=== PATIENT | female | born 1950 | race Caucasian/White ===

== ENCOUNTER 2019-10-21 10:51 | Outpatient (CLI) | payer OTHER, SELFPAY ==
--- NOTE | 2019-10-24 06:12 | SLEEP_ITS ---
Home sleep test. DATE OF STUDY: 10/21/2019 ORDERING PHYSICIAN: Dario Moon M.D. REASON FOR STUDY: Loud snoring. HISTORY: This patient is a 69-year-old woman, 5 feet 2 inches tall, weighing 175 pounds with a body mass index of 32 kg/m2. On a prior sleep test in 2005, her optimal pressure was 20 cm. She has been told by her family that she snores very loudly. This has been going on for several years. It is moderately severe. She has a family history with 2 brothers and 2 sisters having sleep apnea. She had a sleep study 10 years ago and had a CPAP machine, but difficulty using it. She constantly snores and it is constantly loud enough that others complain about it. She occasionally awakens at night with heartburn, belching, or cough. She does not awaken from sleep feeling short of breath. She occasionally has difficulty sleeping with cold. She rarely wakes up gasping for breath at night. She occasionally has breathing problems witnessed by others. She frequently sweats excessively at night and frequently notices her heart pounding or beating irregularly at night. She does not fall asleep during the day, does not fall asleep involuntarily or while driving, does not have loss of muscle tone with strong emotion. She does not feel paralyzed on waking or falling asleep, and she does not have vivid dreamlike scenes upon waking or falling asleep. She rarely is afraid to go to sleep. She does not have nightmares. She rarely remembers her dreams. She frequently has racing thoughts. She frequently has anxiety. She occasionally has muscular tension and notices parts of her body jerking. She does not kick at night. She constantly has crawly and aching feelings in her legs and frequently has leg pain during the night. She constantly grinds her teeth at night. She occasionally is bothered by pain during the day. She rarely is awakened with pain at night. She frequently wakes up feeling stiff in the morning. She occasionally wakes up with sore achy muscles and wakes with pain in the neck and spine. She has dizziness and fatigue. Normal bedtime is 11 p.m., falling asleep immediately, waking 3-4 times at night for 1 minute. She frequently will drink water when she wakes at night. She wakes in the morning at 5:15 a.m. Weekend schedule is the same. She does not take naps in the day. She is usually drowsy for 2 hours after waking up. MEDICAL COMORBIDITIES: Back pain, hyperlipidemia, obstructive sleep apnea syndrome which was severe about 10 years ago, hypertension. On her prior test on 10/01/2005, her optimal pressure was 20 cm. MEDICATIONS: Multivitamin. HABITS: Caffeine, 2 cups of [id number] coffee daily. No alcohol. No recreational drugs. No tobacco. DESCRIPTION OF THE STUDY: On the [place] Sleepiness Scale, the score was 8. This was conducted as an unattended type 3 portable home sleep test using 4-channel monitoring including respiratory effort channel, snoring channel, oxygen desaturation channel, and heart rate channel. This study was scored using [facility] guidelines. Duration was 5 hours 54 minutes. The apnea-hypopnea index was 68. Oxygen desaturation index was 63. Lowest desaturation 70%. Baseline saturation 94%. Average saturation 90%. The patient had 319 apneas. 208 apneas or 65% were obstructive, 5% or 15 apneas were central, and 30% of the apneas or 96 were mixed, and she had 81 hypopneas. The patient had a numerous snoring events 1146. She had 372 desaturations and spent 32% of the study or 115 minutes below 88% saturation. IMPRESSION: 1. This study provides evidence of extremely severe obstructive sleep apnea syndrome G47.33 with a modest component 35% of the events being central. We recommend an AutoPAP to see if this is t
== END 2019-10-21 10:52 | disposition home or self-care (01) ==
LOC: ANHCSM 10:52
PROVIDERS: PCP Family Medicine; Visit Provider Family Medicine
DX: G47.33 Obstructive sleep apnea (adult) (pediatric) (principal); Z68.32 Body mass index [BMI] 32.0-32.9, adult; I10 Essential (primary) hypertension; M19.90 Unspecified osteoarthritis, unspecified site; E78.5 Hyperlipidemia, unspecified
CPT/HCPCS: 95806

== ENCOUNTER 2020-02-16 14:55 | Outpatient (CLI) | payer OTHER, SELFPAY ==
--- NOTE | ~2020-02-16 | MM_ITS ---
EXAMINATION: MM screening [facility] BI w olu HISTORY: Screening TECHNIQUE: Craniocaudal and mediolateral oblique 3-D tomosynthesis images were obtained and synthetic 2-D images were generated. CAD analysis was submitted and interpreted. COMPARISON: Comparison to multiple prior studies sequentially, with oldest reviewed study dated 07/2010. BREAST PARENCHYMAL COMPOSITION: There are scattered areas of fibroglandular density. FINDINGS: There are benign breast calcifications. There is no evidence of suspicious mass, calcificat ion, or architectural distortion to suggest malignancy in either breast. There has been no suspicious interval change. IMPRESSION: 1. No mammographic evidence of malignancy. 2. Recommend routine screening mammography in one year. BI-RADS Category 2: Benign finding(s). Reviewed, dictated and finalized at location A. ORK ENGINEER ADMINISTRATOR
== END 2020-02-16 14:56 | disposition home or self-care (01) ==
LOC: ANHIMG 14:57
PROVIDERS: PCP Family Medicine; Visit Provider Family Medicine
DX: Z12.31 Encounter for screening mammogram for malignant neoplasm of breast (principal)
CPT/HCPCS: 77063; 77067

== ENCOUNTER 2021-07-31 14:57 | Outpatient (CLI) | payer OTHER, SELFPAY ==
--- NOTE | ~2021-07-31 | DEXA_ITS ---
Bone Density Report Name: IRA CASTILLO Age: 71 Sex: Female Ethnicity: White Date of : 1950 Indication: postmenopausal; screening for osteoporosis; prior fracture; Referring Provider: LUAN*MADALYN Field Study: Bone densitometry was performed. Exam Date: July 31, 2021 Accession number: [id number] Bone Density: Region BMD T-score Z-score Classification AP Spine(L1-L4) 0.982 -0.6 1.6 Normal Femoral Neck (Left) 0.719 -1.2 0.7 Osteopenia Total Hip (Left) 0.824 -1.0 0.6 Normal Femoral Neck (Right) 0.633 -1.9 -0.1 Osteopenia Total Hip (Right) 0.880 -0.5 1.1 Normal Total Hip Mean 0.852 -0.8 0.9 Normal World Health Organization criteria for BMD impression classify patients as: Normal (T-score at or above -1.0), Osteopenia (T-score between -1.0 and -2.5), or Osteoporosis (T-score at or below -2.5). 10-year Fracture Risk(1): Major Osteoporotic Fracture 17% Hip Fracture 3.2% Reported Risk Factors: [place] (), Neck BMD=0.633, BMI=32.9, previous fracture (1) FRAX(R) Version 3.08. Fracture probability calculated for an untreated patient. Fracture probability may be lower if the patient has received treatment. Clinical Information Provided by Patient: Has had a low trauma fracture Has used the following medications: Vitamin D Patient maximum height was 62 Menopause Age: 55 No regular weight bearing exercise Drinks caffeinated beverages Onset of menses at age 12 Number of children 3 Impression: The patient has low bone mass, based on the Right Femoral Neck T-score. The patient has an estimated ten-year risk of hip fracture of 3.2% and an estimated ten-year risk of major fracture of 17%, based on the WHO FRAX algorithm. The patient has risk factors, including: previous fracture. Discussion: BONE DENSITY IS LOW AT ONE OR MORE SKELETAL SITES. THE PATIENT'S BMD AND CLINICAL RISK FACTORS CONTRIBUTE TO THIS PATIENT'S INCREASED RISK OF FRACTURE. This patient's lowest T-score is low at one or more skeletal sites. It meets the World Health Organization's (WHO) criteria for ?low bone mass? (T-score between -1.0 and -2.5). The patient's 10-year risk of hip fracture as calculated by FRAX exceeds the threshold where pharmacological therapy is recommended by the National Osteoporosis Foundation (NOF). However, all treatment decisions require clinical judgment and consideration of individual patient factors, including patient preferences, comorbidities, previous drug use, risk factors not captured in the FRAX model (e.g., frailty, falls, vitamin D deficiency, increased bone turnover, interval significant decline in bone density) and possible under or overestimation of fracture risk by FRAX. The patient should follow a healthful lifestyle (good nutrition with adequate calcium and vitamin D,
== END 2021-07-31 14:58 | disposition home or self-care (01) ==
LOC: ANHIMG 14:58
PROVIDERS: PCP Family Medicine; Visit Provider Hospitalist
DX: Z78.0 Asymptomatic menopausal state (principal); M85.89 Other specified disorders of bone density and structure, multiple sites
CPT/HCPCS: 77080

== ENCOUNTER 2022-05-28 18:04 | Emergency (ER) | payer OTHER, SELFPAY ==
--- NOTE | ~2022-05-28 | CT_ITS ---
EXAMINATION: CT abdomen pelvis w con DATE: 05/28/2022 21:05 INDICATION: lower abdominal pain, possible diverticulitis TECHNIQUE: Computed tomography (CT) of the abdomen and pelvis was performed with 100 mL Omnipaque-350 intravenous contrast. Automated exposure control and iterative reconstruction technique were employe d. The dose-length product was 772.28 mGy-cm. COMPARISON: None. FINDINGS: Lower thorax: Minimal bibasilar scar/atelectasis Liver: Normal. Biliary/Gallbladder: Gallbladder is normal. No bile duct dilation. Pancreas: No mass or duct dilation. Spleen: Normal. Adrenals:No mass. Kidneys: Simple right renal cysts. No suspicious mass, stone, or hydronephrosis. GI tract: Small hiatal hernia. Antral wall edema. No small or large bowel dilation. Normal appendix. Diverticulosis. Very mild pericolonic inflammatory change and hyperemia in the mid sigmoid colon, in the mid lower abdomen. Mesentery/Peritoneum: No ascites, mass, or free air. Retroperitoneum: No mass. Atherosclerotic abdominal aortic and/or arterial calcifications. Pelvis: Pelvic organs are within normal limits. Soft Tissues: Small, uncomplicated fat-containing umbilical and left inguinal hernias. Bones: No acute osseous finding. IMPRESSION: Antral gastritis. Very mild pericolonic stranding and hyperemia in the mid sigmoid colon, may represe nt mild uncomplicated diverticulitis in the appropriate clinical context. Otherwise, no acute abdomin opelvic process detected. Reviewed, dictated and finalized at location K. OPATHOLOGIST IMPRESSION: Antral gastritis. Very mild pericolonic stranding and hyperemia in the mid sigm oid colon, may represent mild uncomplicated diverticulitis in the appropriate c linical context. Otherwise, no acute abdominopelvic process detected.
[2022-05-28 18:25] VITALS: BP 173/86; PULSE 74; RESP 16; TEMP 36.6; O2SAT 98
[2022-05-28 18:44] LABS: Basophils Absolute Auto 0.1 K/mm3 (0.0-0.1); Basophils Percent Auto 0.7 % (0.2-1.2); Eosinophils Absolute Auto 0.2 K/mm3 (0-0.3); Eosinophils Percent Auto 1.8 % (0-4.4); Hematocrit 42.7 % (37.0-47.0); Hemoglobin 14.4 g/dL (12.0-15.0); Immature Granulocyte Absolute 0.05 K/mm3 (0.00-0.031); Immature Granulocyte Percent A 0.5 % (0-0.5); Lymphocytes Absolute Auto 2.25 K/mm3 (0.9-3.2); Lymphocytes Percent Auto 23.8 % (18.3-44.2); Mean Corpuscular HGB Conc 33.7 g/dl (32-36); Mean Corpuscular Hemoglobin 30.9 pg (26-34); Mean Corpuscular Volume 91.6 fl (80-100); Mean Platelet Volume 8.7 fl (7.4-10.4); Monocytes Absolute Auto 0.7 K/mm3 (0.1-0.6); Monocytes Percent Auto 7.5 % (2.6-8.5); Neutrophils Absolute Auto 6.2 K/mm3 (1.3-6.7); Neutrophils Percent Auto 65.7 % (45.5-73.1); Platelet Count Result 341 k/mm3 (150-375); Red Blood Count 4.66 M/mm3 (4.2-5.4); Red Cell Distribution Width 12.3 % (11.5-14.5); White Blood Count 9.5 K/mm3 (4.5-10.0)
[2022-05-28 18:55] LABS: Alanine Aminotransferase 28 U/L (6-35); Albumin Level 4.5 g/dL (3.5-5.1); Alkaline Phosphatase 84 U/L (38-126); Anion Gap 6 mmol/L (8-16); Aspartate Amino Transferase 24 U/L (14-36); Bilirubin,Total 0.5 mg/dL (0.2-1.3); Blood Urea Nitrogen 11 mg/dL (7-17); Calcium 9.2 mg/dL (8.4-10.2); Carbon Dioxide 30 mmol/L (22-30); Chloride 99 mmol/L (98-107); Estimated CRCL calculation 58 ml/min; Estimated Glomerular Filt Rate > 60; Glucose 101 mg/dL (65-110); Lipase 73 U/L (23-300); Potassium 3.7 mmol/L (3.4-5.0); Sodium 135 mmol/L (137-145)
[2022-05-28 19:01] LABS: Appearance Urine Clear (Clear); Bilirubin Urine Negative (Negative); Blood Urine Trace-intact (Negative); Color Urine Light Yellow (Yellow); Glucose Urine UA Negative (Negative); Ketones Urine Negative (Negative); Leukocyte Esterase Ur Negative LEU/UL (Negative); Nitrate Urine Negative (Negative); Protein Urine Negative (Negative); Specific Grav Ur <= 1.005 (1.001-1.035); Urobilinogen Urine 0.2 mg/dL (<2.0)
[2022-05-28 19:06] LABS: WBC Urine 0-3 /hpf
[2022-05-28 19:07] LABS: Add Urine Microscopic? YES
[2022-05-28 21:37] VITALS: BP 161/74; PULSE 60; RESP 18; TEMP 36.1; O2SAT 100
--- NOTE | 2022-05-28 21:50 | ED.GENADULT ---
HPI - General Adult General Chief complaint: Abdominal Pain Stated complaint: CONSTIPATION [id number] Time Seen by Provider: 05/28/22 19:29 History of Present Illness HPI narrative: Patient is a 71-year-old female who presents ER with abdominal discomfort and constipation. Ongoing over the last week. She is taken multiple stool softeners and has evacuated her bowels and is also used a enema. She still feels pressure in her lower abdomen and the need to stool despite having not been eating and having taken her stool softeners. Denies fevers or chills or sweats. No chest pain or chest pressure. No history of diverticulitis but reports family history of it. Related Data Allergies Allergy/AdvReac Type Severity Reaction Status Date / Time hydrochlorothiazide [Dyazide] Allergy Unknown intolerance Verified 05/28/22 20:37 with tachy lisinopril Allergy Unknown Swelling Verified 05/28/22 20:37 triamterene Allergy Unknown intolerance Verified 05/28/22 20:37 with tachy Review of Systems Review of Systems: All systems reviewed & are unremarkable except as noted in HPI and below Constitutional: Constitutional: Denies chills, Denies fatigue and Denies fever(s) ENT: Denies nasal congestion and Denies sore throat Cardiovascular: Cardiovascular: Denies chest pain, Denies radiating jaw, neck or arm pain and Denies slow heart rate Respiratory: Respiratory: Denies cough, Denies dyspnea and Denies wheezing Gastrointestinal: Gastrointestinal: Reports abdominal pain, Reports bloating, Reports constipation, Denies diarrhea, Denies nausea and Denies vomiting Genitourinary: Genitourinary: Denies dysuria and Denies flank pain [facility] Past Medical History Medical History (Updated 05/28/22 @ 22:00 by Sawyer Caldera MD) Benign hypertension Obesity, unspecified Surgical History Surgical History (Updated 05/28/22 @ 21:57 by Sawyer Caldera MD) History of laparotomy Family History Family History (Updated 03/05/18 @ 11:00 by DOCTOR UNKNOWN) Father Family history of cardiovascular disease Hypertension Family history of arthritis Mother Family history of cardiovascular disease Acute myocardial infarction, Onset Age: 44 Sibling Family history of cardiovascular disease Family history of malignant neoplasm of uterus Other No family history of malignant neoplasm Social History Social History Smoking status: Former smoker Smoking end date: 04/15/80 Alcohol intake: never Exam Narrative: GENERAL: Well-appearing, well-nourished, and in no acute distress. HEAD: Normocephalic, atraumatic. CHEST: Clear to auscultation. No respiratory distress. HEART: Regular rate and rhythm. Normal peripheral pulses. ABDOMEN: Soft, nontender, nondistended, normal active bowel sounds. EXTREMITIES: Normal range of motion. No edema. SKIN: Warm, dry, no rash. NEURO: Alert and oriented x3. PSYCH: Normal mood and affect. Course Course Emergency Course: Labs normal but imaging suspicious for diverticulitis and given patient's history and presentation I feel patient likely has diverticulitis. Will treat with oral antibiotics at home. Patient aware of diagnosis and treatment plan and verbalized understanding. Vital Signs Vital signs: Vital Signs Temperature 97.9 F 05/28/22 18:25 Pulse Rate 74 05/28/22 18:25 Respiratory Rate 16 05/28/22 18:25 Blood Pressure 173/86 H 05/28/22 18:25 Pulse Oximetry 98 05/28/22 18:25 Oxygen Delivery Room Air 05/28/22 18:25 Temperature 97.0 F L 05/28/22 21:37 Pulse Rate 60 05/28/22 21:37 Respiratory Rate 18 05/28/22 21:37 Blood Pressure 161/74 H 05/28/22 21:37 Pulse Oximetry 100 05/28/22 21:37 Oxygen Delivery Room Air 05/28/22 18:25 Medical Decision Making Vital Signs Vital Signs: Vital Signs Temperature 97.9 F 05/28/22 18:25 Pulse Rate 74 05/28/22 18:25 Respiratory Rate 16 05/28/22 18:25 Blood Pressure 173/86 H 05/28/22 18:25
== END 2022-05-28 22:10 | disposition home or self-care (01) ==
PROVIDERS: Emergency Medicine; Emergency Provider Emergency Medicine; PCP Family Medicine
DX: K57.92 Diverticulitis of intestine, part unspecified, without perforation or abscess without bleeding (principal); K29.70 Gastritis, unspecified, without bleeding; I10 Essential (primary) hypertension; E66.9 Obesity, unspecified; Z68.35 Body mass index [BMI] 35.0-35.9, adult; Z87.891 Personal history of nicotine dependence
CPT/HCPCS: 36415; 74177; 80053; 81001; 83690; 85025; 99284; Q9967

== ENCOUNTER 2022-07-17 00:03 | Day surgery (SDC) | payer OTHER, SELFPAY ==
[2022-07-04 13:46] VITALS: BMI 33.3
[2022-07-17 09:37] VITALS: BP 156/64; PULSE 73; RESP 19; TEMP 36.5; O2SAT 100
--- NOTE | 2022-07-17 09:59 | PM.HPGS ---
History of Present Illness History of Present Illness Consent: Risks, benefits, and alternatives have been discussed and questions answered. Patient agrees to proceed with procedure. Chief complaint: diverticulitis, gastritis,Abnorm.Radiology Findin Narrative: Seema Disla is a 72 year old female Presents for both colonoscopy and EGD. Patient gives a history that in the middle of May she developed pelvic pressure. She had difficulty walking. She felt her legs may have been numb. For this reason she went to the emergency room. Patient also gives a long history of indigestion and acid reflux. In the emergency room a CT scan was performed which suggested thickening of the antrum of the stomach and also thickening of the colon suspicious for diverticulitis. Patient was treated with antibiotics. She also was treated with omeprazole. Patient states her reflux has gone away. Her pelvic pressure has improved but continues to feel some leg difficulty. She presents today for colonoscopy an EGD to assess abnormality seen on CT scan imaging. Patient's family history is noncontributory. Patient denies any dysphagia. She has had no bleeding. She does relate a period of time where she was constipated in the middle of May. This is improved as well with laxative use. Review of Systems Review of Systems: Review of systems Noncontributory. ON LICENSE OF [facility] Past Medical History Medical History (Updated 06/13/22 @ 14:27 by JUSTIN Patiño) Abnormal finding on imaging Antral gastritis Benign hypertension Diverticulitis Encounter for screening colonoscopy Obesity, unspecified Surgical History Surgical History History of laparotomy Family History Family History Father Family history of cardiovascular disease Hypertension Family history of arthritis Mother Family history of cardiovascular disease Acute myocardial infarction, Onset Age: 44 Sibling Family history of cardiovascular disease Family history of malignant neoplasm of uterus Other No family history of malignant neoplasm Social History Social History Years smoked: 10 Smoking status: Former smoker Smoking end date: 04/15/80 Alcohol intake: current Substance use type: does not use Living arrangements: with family Spiritual care concerns: No Meds Home Medications and Allergies Home Medications Medication Instructions Recorded Confirmed Type Airborne Gummy 2 gummy PO DAILY 07/04/22 07/04/22 History Beet Root 605 mg PO DAILY 07/04/22 07/04/22 History Benefiber (wheat dextrin) 1 dose PO DAILY PRN Constipation 07/04/22 07/04/22 History Magnesium Complex 400 mg PO DAILY 07/04/22 07/04/22 History Metamucil Sugar Free 15 g PO DAILY 07/04/22 07/04/22 History Multiple Vitamin, Womens 1 gummy PO DAILY 07/04/22 07/04/22 History ascorbic acid (vitamin C) 250 mg 250 mg PO DAILY 07/04/22 07/04/22 History chewable tablet cholecalciferol (vitamin D3) 50 2,000 unit PO DAILY 07/04/22 07/04/22 History mcg (2,000 unit) capsule (Vitamin D3) coQ10 (ubiquinol) 100 mg capsule 100 mg PO DAILY 07/04/22 07/04/22 History mecobalamin (vitamin B12) 1,000 1,000 mcg PO DAILY 07/04/22 07/04/22 History mcg chewable tablet omeprazole 20 mg capsule,delayed 20 mg PO DAILY 07/04/22 07/04/22 History release zinc 22 mg tablet 22 mg PO DAILY 07/04/22 07/04/22 History Allergies Allergy/AdvReac Type Severity Reaction Status Date / Time metoprolol Allergy Intermediate Swelling Verified 07/17/22 09:36 hydrochlorothiazide [Dyazide] Allergy Unknown intolerance Verified 07/17/22 09:36 with tachy lisinopril Allergy Unknown Swelling Verified 07/17/22 09:36 triamterene Allergy Unknown intolerance Verified 07/17/22 09:36 with tachy Vital Signs Vital Signs - 24 hr 07/17/22 09:37 Te
[2022-07-17] MEDS: LACTATED RINGERS 1,000 ML 150 ML IV CONT (10:03)
--- NOTE | 2022-07-17 10:20 | WPDANESEPPF ---
Anes - Initial Pre Proc Eval Procedure: Operation Date: 07/17/22 11:00 Proposed Procedures p Esophagogastroduodenoscopy & Colonoscopy - Gabo Lugo MD Date/Time: 07/17/22 10:20 Surgeon: Gabo Lugo MD Pre Op Diagnosis: diverticulitis, gastritis,Abnorm.Radiology Findin Patient Data Age: 72 Gender: F Height: 1.57 m Weight: 79.7 kg Last Vital Signs Temp 97.7 F 07/17/22 09:37 Pulse 73 07/17/22 09:37 Resp 19 07/17/22 09:37 BP 156/64 H 07/17/22 09:37 Pulse Ox 100 07/17/22 09:37 O2 Del Method Room Air 07/17/22 09:37 Allergies Allergy/AdvReac Type Severity Reaction Status Date / Time metoprolol Allergy Intermediate Swelling Verified 07/17/22 09:36 hydrochlorothiazide [Dyazide] Allergy Unknown intolerance Verified 07/17/22 09:36 with tachy lisinopril Allergy Unknown Swelling Verified 07/17/22 09:36 triamterene Allergy Unknown intolerance Verified 07/17/22 09:36 with tachy Home Medications Medication Instructions Recorded Confirmed Type Airborne Gummy 2 gummy PO DAILY 07/04/22 07/04/22 History Beet Root 605 mg PO DAILY 07/04/22 07/04/22 History Benefiber (wheat dextrin) 1 dose PO DAILY PRN Constipation 07/04/22 07/04/22 History Magnesium Complex 400 mg PO DAILY 07/04/22 07/04/22 History Metamucil Sugar Free 15 g PO DAILY 07/04/22 07/04/22 History Multiple Vitamin, Womens 1 gummy PO DAILY 07/04/22 07/04/22 History ascorbic acid (vitamin C) 250 mg 250 mg PO DAILY 07/04/22 07/04/22 History chewable tablet cholecalciferol (vitamin D3) 50 2,000 unit PO DAILY 07/04/22 07/04/22 History mcg (2,000 unit) capsule (Vitamin D3) coQ10 (ubiquinol) 100 mg capsule 100 mg PO DAILY 07/04/22 07/04/22 History mecobalamin (vitamin B12) 1,000 1,000 mcg PO DAILY 07/04/22 07/04/22 History mcg chewable tablet omeprazole 20 mg capsule,delayed 20 mg PO DAILY 07/04/22 07/04/22 History release zinc 22 mg tablet 22 mg PO DAILY 07/04/22 07/04/22 History Patient hx anesthesia problems: none Family hx anesthesia problems: none Results Review: All pre-operative results and documents have been reviewed as part of the pre-operative evaluation. [facility] Past Medical History Medical History (Updated 06/13/22 @ 14:27 by Tameka Barbosa APN-C) Abnormal finding on imaging Antral gastritis Benign hypertension Diverticulitis Encounter for screening colonoscopy Obesity, unspecified Surgical History Surgical History History of laparotomy Family History Family History Father Family history of cardiovascular disease Hypertension Family history of arthritis Mother Family history of cardiovascular disease Acute myocardial infarction, Onset Age: 44 Sibling Family history of cardiovascular disease Family history of malignant neoplasm of uterus Other No family history of malignant neoplasm Social History Social History Years smoked: 10 Smoking status: Former smoker Smoking end date: 04/15/80 Alcohol intake: current Substance use type: does not use Living arrangements: with family Spiritual care concerns: No Anes - Eval Final PreProcedure Day of Procedure 07/17/22 10:20 Patient weight: obese Heart: regular rate and rhythm Lungs: clear to auscultation Airway: Mallampati scale class II Neurological: alert and oriented Last oral intake: >/= 8 hours ASA classification: III Emergent: no Anesthetic plan: proceed Anesthesia type and monitoring: general GIVS and standard monitoring Results Review: All pre-operative results and documents have been reviewed as part of the pre-operative evaluation. Informed Consent: The patient's anesthetic plan and its attendant risks and benefits were discussed with the patient/family/POA. Questions were solicited and answers provided to the satisfaction of the patien
--- NOTE | 2022-07-17 10:37 | SUR.OPER ---
Patient stated that she has a chip to one of her front teeth. This was noted and observed before start of procedure.
--- NOTE | 2022-07-17 10:45 | SUR.OPER ---
EGD start 1037 end 1040, Colonoscopy start 1045
[2022-07-17 10:58] VITALS: BP 99/42; PULSE 60; RESP 21; O2SAT 99
[2022-07-17 11:08] VITALS: BP 114/58; PULSE 61; RESP 18; O2SAT 99
[2022-07-17 11:18] VITALS: BP 122/63; PULSE 58; RESP 15; O2SAT 100
== END 2022-07-17 11:39 | disposition home or self-care (01) ==
PROVIDERS: PCP Family Medicine; Visit Provider Internal Medicine Gastroenterology
PROC: 0DJ08ZZ Inspection of Upper Intestinal Tract, Via Natural or Artificial Opening Endoscopic (ICD-10-PCS; CPT 43235; principal; 2022-07-17 11:00)
DX: Z12.11 Encounter for screening for malignant neoplasm of colon (principal); D12.3 Benign neoplasm of transverse colon; K57.30 Diverticulosis of large intestine without perforation or abscess without bleeding; K21.9 Gastro-esophageal reflux disease without esophagitis; I10 Essential (primary) hypertension; E66.9 Obesity, unspecified; Z68.32 Body mass index [BMI] 32.0-32.9, adult; Z87.891 Personal history of nicotine dependence
CPT/HCPCS: 43239; 45385; 87081; 88305; J2704; J7120